=== PATIENT | female | born 1970 ===

== ENCOUNTER 2023-02-09 07:22 | Outpatient (CLI) | payer OTHER | END 2023-02-09 07:27 | disposition home or self-care (01) | LOC: RAD 07:22 | PROVIDERS: ATTEND Internal Medicine Gastroenterology | DX: K59.09 Other constipation (principal); R16.0 Hepatomegaly, not elsewhere classified; K76.0 Fatty (change of) liver, not elsewhere classified; R19.5 Other fecal abnormalities; K62.5 Hemorrhage of anus and rectum ==

== ENCOUNTER → 2024-08-16 13:17 | Outpatient (CLI) | payer OTHER ==
[2024-08-16 13:55] LABS: PH,URINE 5.5 (5.0-8.0); URINE APPEARANCE Cloudy; URINE BILIRRUBIN Negative (NEGATIVE); URINE BLOOD Negative; URINE COLOR Dark Yellow; URINE GLUCOSE Negative (NEGATIVE); URINE KETONE Negative (NEGATIVE); URINE LEUKOCYTE Small; URINE NITRATE Negative; URINE PROTEIN 30 (NEGATIVE); URINE UROBILINOGEN 0.2 E.U./dl
[2024-08-16 13:58] LABS: URINE BACTERIA 237.4 uL (0.0-1933); URINE EPITHELIAL CELLS 71.7 uL (0.0-38.8); URINE RBC 16.6 uL (0.0-20.8); URINE WBC 154.5 uL (0.0-23.2)
[2024-08-16 14:40] LABS: URINE CAST 1.03 uL (0.0-1.40); URINE CRYSTALS FEW /HPF; URINE MUCUS MODERATE
[2024-08-16 14:41] LABS: URINE YEAST FEW /hpf
== END | disposition home or self-care (01) ==
LOC: LAB 13:17
PROVIDERS: ATTEND Urology
DX: N39.0 Urinary tract infection, site not specified (principal)